=== PATIENT | male | born 1995 | race Caucasian/White ===

== ENCOUNTER 2017-03-12 14:48 | Emergency (ER) | payer MEDICAID ==
[2017-03-12 14:52] VITALS: RESP 16
[2017-03-12] MEDS ORDERED: TDAP ADULT 0.5 ML INJ (BOOSTRIX) IM ONE (15:23)
--- NOTE | 2017-03-12 15:28 | EDPHY ---
H & P Stated Complaint: lac L pinky on knife HPI/ROS: CHIEF COMPLAINT: Laceration HISTORY OF PRESENT ILLNESS: Patient was attempting to open a marty with a clean knife today. It slipped off the he patent come in his left pinky. This happened around 1:30 p.m.. Moderate bleeding and pain. No pain at rest. No radiating pain. No numbness or tingling. No difficulty flexing or extending the finger. No involvement of the nail bed or palm. No injury elsewhere. Bleeding is maintained with mild pressure. Uncertain when his last tetanus shot was. No medical problems or medications. No other associated complaints or modifying factors TIME OF INJURY: 1:30 p.m. today TETANUS STATUS: Uncertain REVIEW OF SYSTEMS: Ten systems reviewed and are negative unless otherwise noted in the HPI EXAMINATION General Appearance: Alert, no distress Head: normocephalic, atraumatic Cardiovascular: Pulses normal throughout. Radial pulses 2+. Brisk cap refill Neurological: A&O, sensory symmetric, strength symmetric. Normal strength of the interossei. Skin: Warm and dry, no rash. 1.5 cm laceration on the left pinky, volar on the distal phalanx. No involvement of the nail bed. No exposure of the underlying tendon. Extremities: Tenderness of the left pinky overlying laceration. Full flexion extension of the pinky including superficial profundus. Normal function of the interossei. Range of motion is fully intact otherwise. DIFFERENTIAL DIAGNOSES: Including but not limited to laceration, laceration a complication, laceration with tendinous involvement MDM: 3:25 p.m. Laceration of the left pinky without involvement of the tendon. This is uncomplicated with full neurovascular status and no motor deficits. I have applied a digital block. Proceed with irrigation closure. PROCEDURE: Digital Block Indication: Finger laceration Consent: Verbal Location: Left pinky finger Anesthesia: Lidocaine 1% plain, 0.25% Marcaine plain, 5mL Description: Base of the left pinky finger was prepped with chlorhexidine. The above solution was infused at the base without complication and was tolerated well. Good anesthesia. Neurovascular intact distally postprocedure Complications: None PROCEDURE: Laceration repair Consent: Verbal Location: Left pinky finger, distal phalanx, volar Length of repair: 1.5cm Complexity: Simple Layer involvement: Single Anesthesia: Digital block Irrigation: Extensive Debridement: None Procedure description: Following good anesthesia, the wound was copiously irrigated. Wound bed was explored and there is no foreign body noted. Wound borders were approximated well with good hemostasis. Tolerated well without complication. Suture/Staple material: 5-0 Ethilon, 7 simple interrupted sutures Wound care: Routine as discussed Suture/Staple removal: 7-10 Days 4:30 p.m. Laceration of the left pinky without complication. Suture repaired with good approximation. Neurovascular intact post procedure with good flexion of the finger retain. Wound care discussed. Patient informed that he is leaving the country tomorrow, thus he will follow up in your up with a physician for suture removal in 7-10 days. SUTURE STAPLE REMOVAL: 7-10 days ED Precautions: Worsening pain. Erythema, edema, cyanosis, pallor, paresthesia or anesthesia. SUPERVISION: This patient was independently evaluated without direct examination by the attending physician. Case was discussed with attending physician. Source: Patient Exam Limitations: No limitations - Personal History Current Tetanus Diphtheria and Acellular Pertussis (TDAP): Yes - Medical/Surgical History Other PMH: neg - Social History Smoking Status: Never smoked Constitutional: Initial Vital Signs Temperature (C) 98.2 F 03/12/17 14:49 Heart Rate 64 03/12/17 14:49 Respiratory Rate 16 03/12/17 14:49 Blood Pressure 123/70 H 03/12/17 14:49 O2 Sat (%) 98 03/12/17 14:49 O2 Delivery Mode Room Air Allergies/Adverse Reactions: No Known Allergies Allergy (Unverified 03/12/17 14:52) Home Medications: Medication Instructions Recorded NK [No Known Home Meds] 03/12/17 Medical Decision Making - Data Points Medications Given: Discontinued Medications Diphtheria/Tetanus/Acell Pertussis (Boostrix) 0.5 ml IM .ONCE ONE Stop: 03/12/17 15:24 Last Admin: 03/12/17 15:40 Dose: 0.5 ml Departure - Departure Disposition: Home, Routine, Self-Care Clinical Impression: Finger laceration Qualifiers: Encounter type: initial encounter Finger: little finger Damage to nail status: without damage Foreign body presence: without foreign body Laterality: left Qualified Code(s): S61.217A - Laceration without foreign body of left little finger without damage to nail, initial encounter Condition: Good Instructions: Care For Your Stitches (ED), Laceration (ED) Additional Instructions: 1. Daily wound care as discussed. 2. Follow up with primary care physician for further care 3. Follow up here or with a medical provider in 7-10 days for suture removed Referrals: NONE *PRIMARY CARE P,. [Primary Care Provider] - As per Instructions Johnny Leblanc, [Doctor of Osteopathy] - As per Instructions
[2017-03-12 17:11] VITALS: BP 115/69; PULSE 69; TEMP 97.9; O2SAT 96
== END 2017-03-12 17:10 | disposition home or self-care (01) ==
PROC: 3E0234Z Introduction of Serum, Toxoid and Vaccine into Muscle, Percutaneous Approach (ICD-10-PCS; principal; 2017-03-12)
PROC: 0HQGXZZ Repair Left Hand Skin, External Approach (ICD-10-PCS; principal; 2017-03-12)
DX: S61.217A Laceration without foreign body of left little finger without damage to nail, initial encounter (principal); Z23 Encounter for immunization; W26.0XXA Contact with knife, initial encounter